=== PATIENT | male | born 2000 | race African-American/Black ===

== ENCOUNTER 2018-05-10 05:51 | Emergency (ER) | payer MEDICAID ==
[~2018-05-10] VITALS: Ht 182.9 cm; Wt 90.3 kg
[~2018-05-10 05:51] MED LIST: ESCI10TA PO; OLAN5TAB3 PO
[2018-05-10 06:00] VITALS: BP_SYST 127
[2018-05-10] MEDS ORDERED: methylPREDNISolone SOD SUCC/PF 62.5 MG/ML VIAL IM ONE (06:45)
[2018-05-10 07:02] VITALS: BP_SYST 125
== END 2018-05-10 07:02 | disposition home or self-care (01) ==
LOC: SED 05:51
DX: J45.901 Unspecified asthma with (acute) exacerbation (principal); Z79.899 Other long term (current) drug therapy
CPT/HCPCS: 71045; 96372; 99283; J2930

== ENCOUNTER 2018-10-03 01:44 | Emergency (ER) | payer MEDICAID ==
[~2018-10-03] VITALS: Ht 182.9 cm; Wt 68.0 kg
[2018-10-03 02:11] VITALS: BP_SYST 127
--- NOTE | 2018-10-03 02:18 | NUR ---
Patient to ER bed 07 to gown for evaluation. Side rails up.
--- NOTE | 2018-10-03 02:18 | NUR ---
Eve wilson in [facility] - 10/03/18 at 0227 by [email or web address] patient denies any pych history.
--- NOTE | 2018-10-03 02:20 | NUR ---
Pt C/O of nausea and diarrhea x 1 day. States he ingested antibiotics after eating undercooked chicken. Denies any other symptoms at this time. Will continue to monitor.
--- NOTE | 2018-10-03 02:26 | NUR ---
ER Dr. Mcgovern at bedside examining patient.
[2018-10-03 02:36] VITALS: BP_SYST 127
--- NOTE | 2018-10-03 02:39 | NUR ---
Patient given written and verbal discharge instructions and verbalizes understanding. ER MD discussed with patient the results and treatment provided. Patient in stable condition. ID arm band removed. Rx of Immodium given. Patient educated on pain management and to follow up with PMD. Pain Scale 0. Opportunity for questions provided and answered. Medication side effect fact sheet provided.
== END 2018-10-03 02:39 | disposition home or self-care (01) ==
LOC: SED 01:44
DX: R19.7 Diarrhea, unspecified (principal); R03.0 Elevated blood-pressure reading, without diagnosis of hypertension; J45.909 Unspecified asthma, uncomplicated; Z79.899 Other long term (current) drug therapy
CPT/HCPCS: 99282

== ENCOUNTER 2019-10-18 18:20 | Emergency (ER) | payer MEDICARE, MEDICAID ==
[~2019-10-18] VITALS: Ht 177.8 cm; Wt 99.8 kg
[2019-10-18 18:44] VITALS: BP_SYST 132
--- NOTE | 2019-10-18 18:54 | NUR ---
Patient to ER bed 03 to gown for evaluation.
--- NOTE | 2019-10-18 19:30 | NUR ---
DR. MCKENZIE AT THE BEDSIDE EVALUATING PT
[2019-10-18] MEDS ORDERED: cefTRIAXone 1 GM in LIDOCAINE 1%, 20 ML MDV 2.1 ML IM ONE (19:45)
[2019-10-18] MEDS ORDERED: DEXAMETHASONE SOD PHOSPHATE 10 MG/ML VIAL IM ONE (19:45)
--- NOTE | 2019-10-18 19:50 | NUR ---
PT PRESENTS WITH CO SORE THROAT SINCE THIS MORNING, TONSILS APPEAR PRESENT, SWOLLEN AND REDDENED. DENIES ANY HX OF TONSILITIS OR ANY TONSIL PROBLEMS. DENIES ANY SOB OR DIFFICULTY SWALLOWING. AAOX4, V/S STABLE
--- NOTE | 2019-10-18 20:00 | NUR ---
PT MEDICATED PER MD ORDER, TOLERATED WELL
[2019-10-18 20:14] VITALS: BP_SYST 132
--- NOTE | 2019-10-18 20:16 | NUR ---
Patient given written and verbal discharge instructions and verbalizes understanding. ER MD discussed with patient the results and treatment provided. Patient in stable condition. ID arm band removed. Rx of PREDNISONE AND AUGMENTIN given. Patient educated on pain management and to follow up with PMD. Pain Scale 0/10. Opportunity for questions provided and answered. Medication side effect fact sheet provided.
== END 2019-10-18 20:14 | disposition home or self-care (01) ==
LOC: SED 18:20
DX: J02.9 Acute pharyngitis, unspecified (principal)
CPT/HCPCS: 96372; 99284; J0696; J1100; J2001

== ENCOUNTER 2020-06-07 00:51 | Emergency (ER) | payer MEDICARE, MEDICAID ==
[~2020-06-07] VITALS: Ht 177.8 cm; Wt 90.7 kg
[2020-06-07] MEDS ORDERED: cefTRIAXone 1 GM in LIDOCAINE 1%, 20 ML MDV 2.1 ML IM ONE (01:15)
[2020-06-07] MEDS ORDERED: AZITHROMYCIN 250 MG TABLET PO ONE (01:15)
[2020-06-07 01:45] VITALS: BP_SYST 136
[2020-06-07] MEDS ORDERED: DOXY100T2 PO (02:19)
[2020-06-07 02:35] VITALS: BP_SYST 136
[2020-06-08 23:06] LABS: CHLAMYDIA TRACHOMATIS NAA Negative (Negative); NEISSERIA GONORRHOEAE NAA Negative (Negative)
== END 2020-06-07 02:35 | disposition home or self-care (01) ==
LOC: SED 00:51
DX: A64 Unspecified sexually transmitted disease (principal); J45.909 Unspecified asthma, uncomplicated; Z79.899 Other long term (current) drug therapy
CPT/HCPCS: 87491; 87591; 96372; 99283; J0696; J2001; Q0144

== ENCOUNTER 2022-07-09 15:46 | Inpatient (IN) | payer MEDICARE, MEDICAID ==
[~2022-07-09] VITALS: Ht 182.9 cm; Wt 80.3 kg
[~2022-07-09 15:46] MED LIST changes: +DOXY100T2 PO
[2022-07-09 16:00] VITALS: BP_SYST 130
[2022-07-09] MEDS ORDERED: MORPHINE 4 MG INJ. 4 MG/ML VIAL IVP ONE (16:30)
[2022-07-09] MEDS ORDERED: PIPERACILLIN/TAZO 3.375 GM in NS 50 ML IV ONE (16:30)
[2022-07-09] MEDS ORDERED: NACL 0.9% 2,400 ML IV ONE (16:30)
[2022-07-09] MEDS ORDERED: PIPERACILLIN/TAZOBACTAM 3.375 GM/VIAL (ZOSYN) IV ONE (16:49)
[2022-07-09 17:13] LABS: BILIRUBIN,URINE NEGATIVE (NEGATIVE); BLOOD, URINE NEGATIVE (NEGATIVE); CLARITY/URINE CLEAR (CLEAR); COLOR,URINE YELLOW (YELLOW); GLUCOSE,URINE NEGATIVE (NEGATIVE); KETONES,URINE 1+ (NEGATIVE); LEUKOCYTE ESTERASE ,URINE NEGATIVE (NEGATIVE); NITRITE, URINE NEGATIVE (NEGATIVE); PROTEIN URINE NEGATIVE (NEGATIVE); UROBILINOGEN,URINE 0.2 (0.2-1.0)
[2022-07-09 17:24] LABS: BASOPHILS # (AUTO) 0.1 K/uL (0.0-0.2); BASOPHILS % (AUTO) 0.7 % (0.0-2.0); EOSINOPHILS # (AUTO) 0.5 K/uL (0.0-0.4); EOSINOPHILS % (AUTO) 4.5 % (0.0-4.0); HEMATOCRIT 40.9 % (36-54); HEMOGLOBIN 13.9 g/dL (14.0-18.0); LYMPHOCYTES # (AUTO) 1.8 K/uL (1.0-5.5); LYMPHOCYTES % (AUTO) 16.3 % (20.5-51.5); MEAN CORPUSCULAR HEMOGLOBIN 31 pg (27-31); MEAN CORPUSCULAR HGB CONC 34 % (32-36); MEAN CORPUSCULAR VOLUME 91 fL (79.0-98.0); MONOCYTES % (AUTO) 9.1 % (1.7-9.3); NEUTROPHILS # (AUTO) 7.4 K/uL (1.8-7.7); NEUTROPHILS % (AUTO) 69.4 % (40.0-70.0); PLATELET COUNT (AUTO) 252 K/uL (130-430); RED BLOOD CELL COUNT(AUTO) 4.51 MIL/uL (4.2-6.2); RED CELL DISTRIBUTION WIDTH 13.1 % (9.0-15.0); WHITE BLOOD COUNT (AUTO) 10.7 K/uL (4.8-10.8)
[2022-07-09 18:12] LABS: CALCIUM 9.3 mg/dL (8.4-11.0); CREATININE 1.17 mg/dL (0.55-1.30)
[2022-07-09 18:17] LABS: TOTAL BILIRUBIN 0.5 mg/dL (0.0-1.0)
[2022-07-09] MEDS: MORPHINE 2 MG/ML INJ. SYRINGE IVP PRN (21:32)
[2022-07-09 23:15] VITALS: BP_SYST 136
[2022-07-09 23:30] VITALS: BP_SYST 136
[2022-07-10] VITALS: BP_SYST 136
[2022-07-10 00:20] VITALS: BP_SYST 118
[2022-07-10] MEDS: MORPHINE 2 MG/ML INJ. SYRINGE IVP PRN (04:32)
[2022-07-10 06:03] LABS: BASOPHILS % (AUTO) 0.6 % (0.0-2.0); EOSINOPHILS # (AUTO) 0.6 K/uL (0.0-0.4); EOSINOPHILS % (AUTO) 7.7 % (0.0-4.0); HEMATOCRIT 38.3 % (36-54); HEMOGLOBIN 13.1 g/dL (14.0-18.0); LYMPHOCYTES # (AUTO) 1.4 K/uL (1.0-5.5); LYMPHOCYTES % (AUTO) 17.7 % (20.5-51.5); MEAN CORPUSCULAR HEMOGLOBIN 31 pg (27-31); MEAN CORPUSCULAR HGB CONC 34 % (32-36); MEAN CORPUSCULAR VOLUME 91 fL (79.0-98.0); MONOCYTES % (AUTO) 12.8 % (1.7-9.3); NEUTROPHILS # (AUTO) 4.8 K/uL (1.8-7.7); NEUTROPHILS % (AUTO) 61.2 % (40.0-70.0); PLATELET COUNT (AUTO) 256 K/uL (130-430); RED BLOOD CELL COUNT(AUTO) 4.23 MIL/uL (4.2-6.2); RED CELL DISTRIBUTION WIDTH 12.9 % (9.0-15.0); WHITE BLOOD COUNT (AUTO) 7.8 K/uL (4.8-10.8)
[2022-07-10 06:30] LABS: CALCIUM 8.9 mg/dL (8.4-11.0); CREATININE 1.14 mg/dL (0.55-1.30)
[2022-07-10 08:00] VITALS: BP_SYST 101
[2022-07-10] MEDS ORDERED: OLANZapine 5 MG TABLET PO ONE (09:00)
[2022-07-10] MEDS ORDERED: CITALOPRAM HYDROBROMIDE 20 MG TABLET PO ONE (10:00)
[2022-07-10 12:54] VITALS: BP_SYST 108
[2022-07-10 16:32] VITALS: BP_SYST 104
[2022-07-10 20:00] VITALS: BP_SYST 126
[2022-07-10] MEDS ORDERED: DOXYCYCLINE HYCLATE 100 MG CAPSULE PO SCH (21:00)
[2022-07-11 00:14] VITALS: BP_SYST 122
[2022-07-11 08:15] VITALS: BP_SYST 128
[2022-07-11] MEDS ORDERED: ESCITALOPRAM OXALATE 10 MG TABLET PO SCH (09:00)
[2022-07-11] MEDS ORDERED: CITALOPRAM HYDROBROMIDE 20 MG TABLET PO SCH (09:00)
[2022-07-11] MEDS ORDERED: OLANZapine 5 MG TABLET PO SCH (09:00)
[2022-07-11 11:12] VITALS: BP_SYST 109
[2022-07-11 15:58] VITALS: BP_SYST 119
[2022-07-11 16:10] VITALS: BP_SYST 119
== END 2022-07-11 17:55 | disposition home health service (06) | DRG 605 ==
LOC: SED 15:46 → SMU 18:23
PROVIDERS: ADMIT Internal Medicine; ATTEND Internal Medicine
DX: S31.829A Unspecified open wound of left buttock, initial encounter (principal); L73.2 Hidradenitis suppurativa; F20.9 Schizophrenia, unspecified; F32.A Depression, unspecified; X58.XXXA Exposure to other specified factors, initial encounter
CPT/HCPCS: 36415; 76376; 80048; 80053; 81003; 83605; 85025; 87040; 87070-TC; 87075-TC; 87186-TC; 96365; 96375; 99285; J2270; J2543